=== PATIENT | male | born 1975 | race Caucasian/White ===

== ENCOUNTER 2021-12-17 01:05 | Emergency (ER) | payer OTHER ==
[~2021-12-17] VITALS: Ht 180.3 cm; Wt 102.1 kg
[2021-12-17 01:05] VITALS: BP 130/90
--- NOTE | 2021-12-17 01:05 | NUR ---
TO BED AMBULATORY
[2021-12-17] MEDS ORDERED: FLUORESCEIN OPTH STRIP 1 MG OP ONE (01:35)
[2021-12-17] MEDS ORDERED: TETRACAINE HCL/PF 0.5% OPTH 4 ML BTL OP ONE (01:35)
[2021-12-17] MEDS ORDERED: GENTAMICIN OP 0.3% 15 MG/5 ML BTL OP ONE (01:35)
[2021-12-17] MEDS ORDERED: KETO5SOL OP (02:04)
[2021-12-17] MEDS ORDERED: TOBR5SOL17 LEFT EYE (02:04)
[2021-12-17 02:50] VITALS: BP 128/89
--- NOTE | 2021-12-17 02:50 | NUR ---
Patient discharged with v/s stable. Written and verbal after care instructions given and explained. Patient alert, oriented and verbalized understanding of instructions. Ambulatory with steady gait. All questions addressed prior to discharge. ID band removed. Patient advised to follow up with PMD. Rx of TRBRAMYCIN, KETOROLAC TROMETHAMINE given. Patient educated on indication of medication including possible reaction and side effects. Opportunity to ask questions provided and answered.
== END 2021-12-17 02:50 | disposition home or self-care (01) ==
LOC: MED 01:05
DX: S05.02XA Injury of conjunctiva and corneal abrasion without foreign body, left eye, initial encounter (principal); Z79.2 Long term (current) use of antibiotics; Z79.1 Long term (current) use of non-steroidal anti-inflammatories (NSAID); X58.XXXA Exposure to other specified factors, initial encounter; Y92.89 Other specified places as the place of occurrence of the external cause; Y93.89 Activity, other specified; Y99.8 Other external cause status
CPT/HCPCS: 99283

== ENCOUNTER 2022-11-19 00:47 | Emergency (ER) | payer OTHER ==
[~2022-11-19] VITALS: Ht 177.8 cm; Wt 106.6 kg
[~2022-11-19 00:47] MED LIST: KETO5SOL OP; TOBR5SOL17 LEFT EYE
[2022-11-19 00:55] VITALS: BP 125/90
--- NOTE | 2022-11-19 00:58 | NUR ---
TO LOBBY A/W BED AMBULATORY
--- NOTE | 2022-11-19 01:40 | NUR ---
CALLED BY , NO ANSWER. TRIAGE STATES SHE CALLED WELL AND NO ANSWER.
== END 2022-11-19 01:40 | disposition left against medical advice (07) ==
LOC: MED 00:47
DX: H57.10 Ocular pain, unspecified eye (principal); Z53.21 Procedure and treatment not carried out due to patient leaving prior to being seen by health care provider